=== PATIENT | male | born 1950 | race Caucasian/White ===

== ENCOUNTER → 2018-07-04 | Outpatient (CLI) | payer MEDICARE, OTHER | LOC: M.RAD 09:39 → M.WC 09:39 | DX: M27.8 Other specified diseases of jaws (principal) ==

== ENCOUNTER → 2018-07-25 | Outpatient (CLI) | payer MEDICARE, OTHER | LOC: M.WC 03:17 | DX: M27.8 Other specified diseases of jaws (principal); E11.9 Type 2 diabetes mellitus without complications; E78.5 Hyperlipidemia, unspecified; G47.30 Sleep apnea, unspecified; Z85.818 Personal history of malignant neoplasm of other sites of lip, oral cavity, and pharynx; W88.1XXD Exposure to radioactive isotopes, subsequent encounter ==

== ENCOUNTER → 2018-08-08 | Outpatient (CLI) | payer MEDICARE, OTHER | LOC: M.WC 02:50 | DX: M27.8 Other specified diseases of jaws (principal); E11.9 Type 2 diabetes mellitus without complications; E78.5 Hyperlipidemia, unspecified; G47.30 Sleep apnea, unspecified; Z85.818 Personal history of malignant neoplasm of other sites of lip, oral cavity, and pharynx; W88.8XXD Exposure to other ionizing radiation, subsequent encounter ==

== ENCOUNTER 2018-10-02 16:04 | Emergency (ER) | payer MEDICARE, OTHER ==
[~2018-10-02] VITALS: Ht 180.3 cm; Wt 108.9 kg
[2018-10-02] MEDS ORDERED: SYNTHROID112 MC1 PO (16:20)
[2018-10-02] MEDS ORDERED: COZAAR 25 MG TA25 M1 PO (16:21)
[2018-10-02] MEDS ORDERED: NEXIUM40 MG PO (16:22)
[2018-10-02] MEDS ORDERED: ZETIA10 MG PO (16:22)
[2018-10-02] MEDS ORDERED: GLUCOPHAGE XR750 MG PO (16:23)
[2018-10-02] MEDS ORDERED: AMBIEN 5 MG TABL5 M1 PO (16:24)
[2018-10-02] MEDS ORDERED: NORVASC5 MG PO (16:24)
[2018-10-02] MEDS ORDERED: HYCET 7.5 MG-3473 ML PO (16:26)
[2018-10-02] MEDS ORDERED: NORCO 5-325 TA1 EAC1 PO (17:20)
[2018-10-02 17:59] VITALS: BP 122/76
== END 2018-10-02 18:00 | disposition home or self-care (01) ==
LOC: M.ERS 16:04
DX: S82.491A Other fracture of shaft of right fibula, initial encounter for closed fracture (principal); W00.0XXA Fall on same level due to ice and snow, initial encounter; Y93.89 Activity, other specified; Y92.89 Other specified places as the place of occurrence of the external cause; Y99.8 Other external cause status

== ENCOUNTER 2021-07-19 11:17 | Emergency (ER) | payer MEDICARE, OTHER ==
[~2021-07-19] VITALS: Ht 177.8 cm; Wt 108.9 kg
[~2021-07-19 11:17] MED LIST: AMBIEN 5 MG TABL5 M1 PO; COZAAR 25 MG TA25 M1 PO; GLUCOPHAGE XR750 MG PO; HYCET 7.5 MG-3473 ML PO; NEXIUM40 MG PO; NORCO 5-325 TA1 EAC1 PO; NORVASC5 MG PO; SYNTHROID112 MC1 PO; ZETIA10 MG PO
[2021-07-19 13:37] VITALS: BP 108/91
== END 2021-07-19 13:38 | disposition home or self-care (01) ==
LOC: M.ERS 11:17
DX: S46.212A Strain of muscle, fascia and tendon of other parts of biceps, left arm, initial encounter (principal); I10 Essential (primary) hypertension; E11.9 Type 2 diabetes mellitus without complications; E78.00 Pure hypercholesterolemia, unspecified; Z79.899 Other long term (current) drug therapy; Z88.7 Allergy status to serum and vaccine; W19.XXXA Unspecified fall, initial encounter; Y93.89 Activity, other specified; Y92.89 Other specified places as the place of occurrence of the external cause; Y99.8 Other external cause status